=== PATIENT | female | born 1945 | race Caucasian/White ===

== ENCOUNTER 2024-03-18 12:50 | Emergency (ER) | payer MEDICARE, SELFPAY ==
--- OUTSIDE RECORDS SUMMARY | 2024-03-18 12:53 | XMS_ITS | Continuity of Care Document ---
Author Organization [facility] Address [address] [place] [address] Phone Care Team Providers Care Cutter Operator Asbestos Shingle Name Role Phone Geovanni Eden MD Unavailable Unavailable Advance Directives Directive Yes / No Effective Date File Name No Information Encounters Encounter Description Practice Location Reason(s) For Visit Diagnoses Date Provider Providers Copied on Encounter [facility], [address], [place], [place], [id number], tel:[phone] [facility] No Information 6 Meek Galarza. [address], [facility] [address], [place], [address], [place]. [phone] Referring Provider: Naima Tam MD, [address] [place] [address], [place], [address]. tel:[phone] [facility] [address], [place], [place], [id number], tel:[phone] [facility] 6 Meek Galarza. [address], [address], [place], [address], [place]. tel:[phone] Family History Family Member Type Diagnosis Age At Onset No Information Payers Payer name Insurance type Covered republican ID Authoriza tion(s) MEDICARE [place] [id number] BCBS INACTIVE OUT OF STATE [id number] Social History Type Description Quantity Date Captured Comments Sex Female Smoking Status No Information Chief Complaint And Reason For Visit No Information Reason For Referral Reason For Referral No Information History Of Present Illness Encounter Date Complaint History Of Prese nt Illness No Information Functional Status Date Functional Assessmen t No Information Instructions Date Instruction Additional Infor mation No Information Assessments Type Assessment Date No Information Patient Care Teams Name Effective Dates (start - stop) Status Members No Information
--- OUTSIDE RECORDS SUMMARY | 2024-03-18 12:53 | XMS_ITS | Clinical Summary ---
Author Organization [facility] Address [address] [place] [address] Phone Care Team Providers Care Lamp Shade Assembler Name Role Phone Naima Tam Primary Care Provider [phone] Allergies Active Allergy Reactions Criticality Noted Date Comments Atorvastatin Other (see Comments) 09/01/2017 Muscle stiffness Lovastatin Other (see Comments) 09/01/2017 Stiffness and sleeplessness Meloxicam Other (see Comments) 02/01/2020 Elevated blood pressure Niacin Hives 09/01/2017 Pravastatin Sodium Other (see Comments) 018 Myalgias Simvastatin Other (see Comments) 09/01/2017 Irritated shingles Medications ferrous sulfate 325 (65 Fe) MG Tablet Take 325 mg by mouth Every other day. Active ipratropium-alb uterol (DUO-NEB) 0.5-2.5 (3) MG/3ML Solution by Nebulization route 4 times daily. Active Multiple Vitamins-Minera ls (MULTIVITAMIN PO) Take 1 Tab by mouth daily. Active Probiotic Product (PROBIOTIC ADVANCED PO) Take 1 Cap by mouth daily. Active levothyroxine (SYNTHROID) 25 MCG Tablet Take 25 mcg by mouth daily. Active albuterol 108 (90 Base) MCG/ACT Aerosol Solution take 1-2 Puffs by inhalation every 4 hours as needed. Active Cholecalciferol (VITAMIN D3) 2000 units Tablet Take 2,000 Units by mouth daily. Active Ascorbic Acid (VITAMIN C) 1000 MG Tablet Take 2 Tabs by mouth daily. Active GARLIC PO Take 1 Tab by mouth daily. 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 Iron deficiency anemia 09/02/2017 Achalasia 09/02/2017 Family history of breast cancer in mother 2017 Family History Medical History Relation Name Comments Rheumatoid Arthritis Brother Lung Cancer Father Anemia Mother Breast Cancer Mother Glaucoma Mother Other-comment Mother Temporal Arter itis Relation Name Status Comments Brother Alive Father Mother Alive Social History Tobacco Use Types Packs/Day Years Used Date Smoking Tobacco: Never Smokeless Tobacco: Never Tobacco Cessation:Counseling Given: No Alcohol Use Standard Drinks/Week Comments Never 0 (1 standard drink = 0.6 oz pur e alcohol) PHQ-2 Answer Date Recorded Total Score - Questions 1-9 0 07/16 Comments No Sex and Gender Information Value Date Recorded Sex Assigned at Not on file Legal Sex Female 8:52 AM CDT Gender Identity Not on file Sexual Orientation Not on file Last Filed Vital Signs Vital Sign Reading Time Taken Comments Blood Pressure 122/70 01/29/2022 8:44 AM SUIT ATTENDANT Pulse 109 01/29/2022 8:44 AM SUIT ATTENDANT Temperature 36.3 ??C (97.4 ??F) 01/29/2022 8:44 AM CS T Respiratory Rate 16 01/29/2022 8:44 AM SUIT ATTENDANT Oxygen Saturation 99% 01/29/2022 8:44 AM SUIT ATTENDANT Inhaled Oxygen Concentration - - Weight 70.7 kg (155 lb 14.4 oz) 01/29/2022 8:44 AM SUIT ATTENDANT Height 154.9 cm (5' 1 ) 01/29/2022 8:44 AM SUIT ATTENDANT Body Mass Index 29.46 01/29/2022 8:44 AM SUIT ATTENDANT Plan of Treatment Health Maintenance Due Date Last Done Comments DEXA Bone Density 1945 Hepatitis C Virus (HCV) Screening 1945 Zoster Immunization (1 of 2) 07/09/1997 Respiratory Syncytial Virus (RSV) Immunization (Adult) (1 - 1-dose 75+ series) 07/09/2022 Influenza Immunization (#1) 10/17/202311/16, 12/09/2020, 11/10/2019, Additional history exists SARS-COV-2 Immunization ( season) 2023 09/11/2021, 01/01/2021, 04/13/2020, Additional history exists DTaP/Tdap/Td Immunization Discontinued 10/22/2016 TdaP Immunization Completed 10/22/2016 Pneumococcal Immunization (50+ years) Completed 05/20/2020, 02/03/2019, 02/23/2009 Pneumococcal Immunization Combined Discontinued 05/20/2020, 02/03/2019, 02/23/2009 Mammogram Discontinued 08/12/2021, 06/2019, 04/23/2016 Hepatitis B Immunization Aged Out No longer eligible based on patient's age to complete this topic Meningococcal Immunization (ACWY) Aged Out No longer eligible based on patient's age to complete this topic Rotavirus Immunization Aged Out No lo nger eligible based on patient's age to complete this topic Insurance [facility] MEDICARE Care Teams Lamp Shade Assembler Relationship Specialty Start Date End Date Naima Tam DO [address] [place] [address] Dr [place], [place] [id number] PCP - General Family Medicine 09/02/17
--- OUTSIDE RECORDS SUMMARY | 2024-03-18 13:02 | XMS_ITS | Continuity of Care Document ---
Author Organization [facility] Address [address] [place] [address] Phone Care Team Providers Care Pta Name Role Phone Geovanni Eden MD Unavailable Unavailable Advance Directives Directive Yes / No Effective Date File Name No Information Encounters Encounter Description Practice Location Reason(s) For Visit Diagnoses Date Provider Providers Copied on Encounter [facility], [address], [place], [place], [id number], tel:[phone] [facility] No Information 6 Meek Galarza. [address], [facility] [address], [place], [address], [place]. [phone] Referring Provider: Naima Tam MD, [address] [place] [address], [place], [address]. tel:[phone] [facility], [address], [place], [place], [address], tel:[phone] [facility] 6 Meek Galarza. [address], [address], [place], [address], [place]. tel:[phone] Family History Family Member Type Diagnosis Age At Onset No Information Payers Payer name Insurance type Covered libertarian ID Authoriza tion(s) [place] [id number] BCBS INACTIVE OUT OF STATE [id number] Social History Type Description Quantity Date Captured [...]
--- OUTSIDE RECORDS SUMMARY | 2024-03-18 13:02 | XMS_ITS | Clinical Summary ---
Author Organization [facility] Address Critical access hospital6 [facility] [place], [place] [id number] [place] [address] Care Team Providers Care Audiometrist Name Role Phone Jaquelin Tam DO Primary Care Provider [phone] Allergies Active Allergy Reactions Criticality Noted Date Comments Atorvastatin Myalgias Medium 05/26/2013 Muscle stiffness Rosuvastatin Other (see comment) Medium 05/05/2022 stiffness Pitavastatin Other (see comment) Medium 11/05/2022 Myalgias sim to other statins--topsof thighs-ok w ziptamag 2023 Lovastatin Myalgias Low 06/01/2016 Stiffness and sleeplessness Meloxicam Other (see comment) Medium 01/16/2020 BP went up, retrying 12/06/20 at half dose Niacin Hives High 08/13/2011 Pravastatin Myalgias Low 06/29/2017 Myalgias Simvastatin Myalgias Low 08/26/2015 Irritated shingles Medications COMPRESSION STOCKINGS Compression StockingsWear as directed. Medium Strength. Knee high. Cotton. Dx: Travel Z71.89, Right SI Pain M53.3, LBP 54.5, HTN [id number], TracyActive 12/22/19 17 Active Probiotic Product (PROBIOTIC-10 OR) Take 1 tablet by mouth daily. Active ferrous sulfate, 65 mg elemental, 325 (65 FE) MG tablet Take 1 tablet (325 mg total) by mouth daily. Active multi vitamin/minerals tablet Take 1 tablet by mouth daily. Active Calcium Carbonate-Vitamin D (CALCIUM 600 + D OR) Take 2 tablets by mouth daily. Calcium 600 mg, vitamin d 400 units Active Vitamin D3 125 mcg Tab Take 1 tablet (125 mcg total) by mouth daily. Active diclofenac sodium (VOLTAREN) 1 % gelIndications:Lef t foot pain Apply 4 g topically 4 (four) times daily. 150 g 08/24/19 24 Active Pitavastatin Magnesium (ZYPITAMAG) 2 MG TabIndications:Mix ed hyperlipidemia Take 0.5 mg by mouth nightly at bedtime. 90 tablet 09/20/19 24 Active magnesium oxide (MAG-OX) 400 (240 Mg) MG tablet Take 1 tablet (400 mg total) by mouth daily. Active omeprazole (PRILOSEC) 20 MG capsule Take 1 capsule (20 mg total) by mouth daily. 30 capsule 10/20/19 24 Active levothyroxine (SYNTHROID) 25 MCG tabletIndications: Thyroid activity decreased TAKE ONE (1) TABLET(25 MCG) BY MOUTH DAILY. 90 tablet 01/03/20 24 Active dextromethorphan-g uaiFENesin ER (MUCINEX DM) 30-600 MG TABLET SR 12 HR 12 hr tabletIndications: Acute cough,Fluid level behind tympanic membrane of both ears,Acute viral laryngitis Take 1 tablet by mouth every 12 (twelve) hours as needed. 28 tablet 02/11/20 24 Active methylPREDNISolone , JM, (MEDROL DOSEPAK) 4 MG tabletIndications: Acute cough,Hoarse voice quality,Fluid level behind tympanic membrane of both ears,Acute viral laryngitis Take 1 tablet (4 mg total) by mouth daily. 6 TABLETS ON DAY ONE, 5 TABLETS DAY TWO, 4 TABLETS DAY THREE, 3 TABLETS DAY FOUR, 2 TABLETS DAY FIVE, AND 1 TABLET DAY SIX 1 each 02/11/20 24 Active losartan (COZAAR) 50 MG tabletIndications: Mixed hyperlipidemia TAKE 2 TABLETS (100 MG TOTAL) BY MOUTH DAILY. 180 tablet 02/16/19 25 Active Active Problems Problem Noted Date Diagnosed Date Caregiver burden 12/06/2023 Pain in both lower extremities 09/22/2023 Achalasia of esophagus 08/25/2023 S/P cervical spinal fusion 12/07/2022 Myofascial neck pain 12/07/2022 Family history of hyperlipidemia 11/05/2022 Peripheral vascular disease 11/05/2022 History of fusion of cervical spine 07/27/2022 Cervical spine instability 05/27/2022 Other cervical disc degenera tion, unspecified cervical region 05/27/2022 Radiculopathy, cervical region 05/27/2022 Foraminal stenosis of cervical region 05/27/2022 Reactive airways dysfunction syndrome, mild intermittent, uncomplicated ([facility]) 02/28/2021 Dense breast tissue on mammogram 03/18/2020 Hyperkalemia 02/01/2020 Abnormality of right breast on screening mammogr am 11/28/2018 Hip pain, bilateral 11/28/2018 Sign and symptom in breast 10/12/2018 Abnormal ultrasound of breast 09/07/2018 Deep venous thrombosis of le ft femoral vein with thrombophlebitis ([facility]) 07/07/2018 Iliopsoas bursitis of left hip 02/21/2018 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 Family history of breast cancer in mother 2017 Abnormal magnetic resonance imaging study 2017 Overview (02/18/2018): Date Onset: 07/15/2017 Edema of both legs 07/15/2017 Overview (02/18/2018): Date Onset: 07/15/2017 Elevated sed rate 07/15/2017 Overview (02/18/2018): Date Onset: 07/15/2017 Mild anemia 07/15/2017 Overview (02/18/2018): Date Onset: 07/15/2017 Superficial thrombophlebitis of arm 07/15/2017 Overview (02/18/2018): Note: left antecubital space secondary to phlebotomy Date Onset: 07/15/2017 Bronchitis 05/24/2017 Overview (02/18/2018): Date Onset: 08/13/2011 Date Onset: 05/24/2017 Cough 05/24/2017 Overview (02/18/2018): Date Onset: 05/24/2017 Liver cyst 05/24/2017 Overview (02/18/2018): Date Onset: 05/24/2017 Date Onset: 05/24/2017 Hiatal hernia 12/21/2016 Overview (02/21/2018): Date Onset: 08/26/2015 Thyroid activity decreased 05/18/2016 Overview (02/21/2018): Date Onset: 05/18/2016 Iliotibial band syndrome 05/18/2016 Overview (02/18/2018): Date Onset: 05/18/2016 Pain in thoracic spine 05/18/2016 Overview (02/18/2018): Date Onset: 05/18/2016 Abnormal blood level of iron 08/26/2015 Overview (02/18/2018): Date Onset: 06/20/2013 Date Onset: 08/26/2015 Atherosclerotic heart disease 03/25/2015 Overview (02/18/2018): Date Onset: 03/25/2015 Disorder of connective tissue ([facility]) 03/25/2015 Overview (02/18/2018): Date Onset: 03/25/2015 Hematuria 03/25/2015 Overview (02/18/2018): Date Onset: 03/25/2015 Insomnia 03/25/2015 Overview (02/18/2018): Date Onset: 03/25/2015 Skin lesion 03/25/2015 Overview (02/18/2018): Date Onset: 03/25/2015 Disease of esophagus 03/11/2015 Overview (02/18/2018): Date Onset: 08/13/2011 Date Onset: 03/11/2015 History of abnormal mammogram 11/19/2014 Overview (02/18/2018): Date Onset: 11/19/2014 Overweight 07/24/2014 Overview (02/18/2018): Date Onset: 07/24/2014 Tinnitus 07/24/2014 Overview (02/18/2018): Date Onset: 07/24/2014 Obstructive sleep apnea (adult) (pediatric) 06/2014 Dysphagia 11/07/2013 Overview (02/18/2018): Date Onset: 11/07/2013 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 Overview (02/18/2018): Date Onset: 11/07/2013 Seborrheic keratoses 11/07/2013 Overview (02/18/2018): Date Onset: 11/07/2013 Anxiety disorder 05/23/2013 Overview (02/18/2018): Date Onset: 05/23/2013 Conversion disorder 05/23/2013 Overview (02/18/2018): Date Onset: 05/23/2013 Irritable bowel syndrome 05/23/2013 Overview (02/18/2018): Date Onset: 05/23/2013 Asymptomatic varicose veins 07/25/2012 Overview (02/18/2018): Date Onset: 07/25/2012 Essential (primary) hypertension 05/09/2012 Overview (02/18/2018): Date Onset: 05/09/2012 Family history of other cardiovascular diseases 05/09/2012 Overview (02/18/2018): Date Onset: 05/09/2012 Bone spur 02/18/2012 Overview (02/18/2018): Note: left foot bone spurs Urinary tract infection 11/14/2011 Chronic fatigue syndrome 08/13/2011 Gastro-esophageal reflux disease without esophag itis 08/13/2011 Hyperlipidemia 08/13/2011 Overview (02/21/2018): Date Onset: 07/15/2017 Impaired fasting glucose 08/13/2011 Overview (02/18/2018): Date Onset: 05/24/2017 Date Onset: 08/13/2011 Iron deficiency anemia 08/13/2011 Lipoma 08/13/2011 Overview (02/18/2018): Date Onset: 08/13/2011 Menopausal syndrome 08/13/2011 Overview (02/18/2018): Date Onset: 08/13/2011 Raynaud's syndrome 08/13/2011 Idiopathic scoliosis and kyphoscoliosis 08/13/19 12 Vitamin D deficiency 08/13/2011 Overview (02/18/2018): Date Onset: 08/13/2011 Nocturia 01/06/2011 Resolved Problems Problem Noted Date Diagnosed Date Resolved Date Cervical myelopathy ([facility]) 05/27/2022 09/03/2023 Spinal stenosis of cervical region 05/27/2022 03/04/2023 Spondylolisthesis of cervical region 05/27/2022 03/04/2023 Type 2 diabetes mellitus ([facility]) 06/20/2013 01/19/2019 Overview (02/21/2018): Date Onset: 06/20/2013 Routine general medical exam ination at a health care facility 11/14/2011 10/27/2019 Encounters Date Type Department Care Team Description 02/11/2024 1:40 PM CARBONATION EQUIPMENT TENDER Office Visit [address] [place] [address] Dat Valencia MD Cough (Pt is here for a cough,her voice is raspy, symptoms started Wed, she has been taking cold and sinus medication) 02/11/2024 Travel 01/17/2024 2:48 PM CARBONATION EQUIPMENT TENDER - 01/17/2024 11:59 PM CARBONATION EQUIPMENT TENDER Hospital Encounter [facility] [address] [place] [address] Jaquelin Tam, DO Discharge Disposition: Home or Self Care (Routine Discharge) 01/17/2024 Travel from Last 3 Months Immunizations Name Administration Dates Next Due Fluzone High Dose - >Age 65 (Prefilled Syringe) 12/11/2021,12/09/2020,11/10/2019,2019,11/28/2018,11/28/2018 Influenza (Generic) 11/15/2017, 7,12/10/2015,2014,11/29/2013,02/15/2010 MODERNA COVID-19 (12+) MRNA, LNP-S, PF, 100 MCG/ 0.5 ML DOSE 03/16/2020,03/16/2020 MODERNA COVID-19 (FLAKE CUTTER OPERATOR PATI JOSÉ MIGUEL), MRNA, LNP-S, PF, 50 MCG/ 0.25 ML DOSE 09/11/2021 Pneumococcal (Pneumovax 23) 05/20/2020,0 05/20/2020,02/23/2009,2009 Pneumococcal (Prevnar 13) 02/03/2019 Tdap (Generic) 10/22/2016 Family History Medical History Relation Comments Arthritis Brother SEPSIS Brother Cancer Father brain cancer Tuberculosis Father Breast Cancer Maternal Aunt 1 Breast Cancer Maternal Aunt 2 Breast Cancer Maternal Aunt 3 Arthritis Mother Breast Cancer Mother Cancer Mother breast cancer Heart Mother Heart Disease Mother heart valve prob lems Hypertension Mother Kidney Disease Mother not on dialysis Lipids Mother Relation Status Comments Brother (Age 54) of sepsis , hx rheumatoid arthritis Daughter 1 Alive Daughter 2 Alive Daughter 3 Alive Father (Age 71) Maternal Aunt 1 Severe scoliosis and degenerative arthritis Maternal Aunt 2 Alive Maternal Aunt 3 Alive Maternal Grandfather Maternal Grandmother Mother (Age 94) Giant cell art eritis temporal arteritis steroid-dependent- dec 07/05/22 Paternal Grandfather Paternal Grandmother Son Alive Social History Tobacco Use Types Packs/Day Years Used Date Smoking Tobacco: Never Passive Smoke Exposure: Never Smokeless Tobacco: Never Alcohol Use Standard Drinks/Week Comments No 0 (1 standard drink = 0.6 oz pur e alcohol) Humiliation, Afraid, Rape, and Kick questionnair e Answer Date Recorded Within the last year, have y ou been afraid of your partner or ex-partner? No 07/27/2022 Within the last year, have y ou been humiliated or emotionally abused in other ways by your partner or ex-partner? No Within the last year, have y ou been kicked, hit, slapped, or otherwise physically hurt by your partner or ex-partner? No 07/27/2022 Within the last year, have y ou been raped or forced to have any kind of sexual activity by your partner or ex-partner? No 07/27/2022 AUDIT-C Answer Date Recorded Frequency of Alcohol Consumption Never 02/21/2018 Average Number of Drinks Not on file 019 Frequency of Binge Drinking Not on file 08/2018 Overall Financial Resource Strain (CARDIA) Answe r Date Recorded How hard is it for you to pa y for the very basics like food, housing, medical care, and heating? Not hard at all 07/27/2022 PHQ-2 Answer Date Recorded Patient Health Questionnaire-2 Score 0 12/09/2023 [facility] - Occupational Stress Questionnaire Answer Date Recorded Do you feel stress - tense, restless, nervous, or anxious, or unable to sleep at night because your mind is troubled all the time - these days? Not at all 07/27/2022 Exercise Vital Sign Answer Date Recorde d On average, how many days pe r week do you engage in moderate to strenuous exercise (like a brisk walk)? 0 days 07/27/2022 On average, how many minutes do you engage in exercise at this level? 0 min 07/27/2022 Hunger Vital Sign Answer Date Recorded Within the past 12 months, y ou worried that your food would run out before you got the money to buy more. Never true 07/28/19 23 Within the past 12 months, t he food you bought just didn't last and you didn't have money to get more. Never true 07/27/2022 PRAPARE - Transportation Answer Date Re corded In the past 12 months, has l ack of transportation kept you from medical appointments or from getting medications? No 07/16 In the past 12 months, has l ack of transportation kept you from meetings, work, or from getting things needed for daily living? No 07/27/2022 Housing Stability Vital Sign Answer Zackary e Recorded In the last 12 months, was t here a time when you were not able to pay the mortgage or rent on time? No 07/27/2022 In the last 12 months, how many places have you lived? 1 07/27/2022 In the last 12 months, was t here a time when you did not have a steady place to sleep or slept in a mcc (including now)? 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 Not on file Not on file Last Filed Vital Signs Vital Sign Reading Time Taken Comments Blood Pressure 107/62 02/11/2024 1:38 PM CARBONATION EQUIPMENT TENDER Pulse 72 02/11/2024 1:38 PM CARBONATION EQUIPMENT TENDER Temperature 37.1 ??C (98.7 ??F) 02/11/2024 1:38 PM CS T Respiratory Rate 16 02/11/2024 1:38 PM CARBONATION EQUIPMENT TENDER Oxygen Saturation 99% 02/11/2024 1:38 PM CARBONATION EQUIPMENT TENDER Inhaled Oxygen Concentration - - Weight 66.2 kg (146 lb) 02/11/2024 1:38 PM CARBONATION EQUIPMENT TENDER Height 154.9 cm (5' 1 ) 02/11/2024 1:38 PM CARBONATION EQUIPMENT TENDER Body Mass Index 27.59 02/11/2024 1:38 PM CARBONATION EQUIPMENT TENDER Plan of Treatment Upcoming Encounters Date Type Department Care Team (Late st Contact Info) Description 04/17/2024 7:40 AM CARBONATION EQUIPMENT TENDER Office Visit [facility] [place] [address] [place], [place] [id number] [address] Der[address] Coronado PA [address] [place] [address] 02/28/2025 10:00 AM CARBONATION EQUIPMENT TENDER Office Visit [facility] [address] [place] [phone] Cortes Sena MD [facility]. [address] [id number] Health Maintenance Due Date Last Done Comments Zoster Vaccines (1 of 2) 07/09/1997 RSV Immunization or 60+ Years (1 - 1-dose 75+ series) 07/09/2022 COVID-19 Vaccine ( season) 2023 09/11/2021, 01/01/2021, 04/13/2020, Additional history exists Influenza Adult (#1) 2023 12/11/2021, 12/09/2020, 11/10/2019, Additional history exists PHQ-2 (Phys[facility] [place]) 02/16/2024 12/09/2023 PHQ-2 (Physician [place]) 12/08/2024 12/09/2023 DTaP, Tdap and Td Vaccines (2 - Td or Tdap) 10/22/2026 10/22/2016 Annual Medicare Wellness Visit 09/20/2029 Postponed from 07/09/2012 (Elected Alternative Screening/Test) Hepatitis C Completed 10/03/2018 Pneumococcal Vaccine: 65+ Years Completed 05/20/2020, 05/20/2020, 02/03/2019, Additional history exists Colorectal Cancer Screening Colonoscopy (10 Years) Discontinued 04/25/2021, 04/25/2021 Dexa Scan (General) Completed 12/21/2022, 06/25/2016, 06/25/2016 Meningococcal B Vaccine Aged Out No l onger eligible based on patient's age to complete this topic Meningococcal Vaccine Aged Out No melissa carmen eligible based on patient's age to complete this topic RSV Immunizations Under 20 Months Aged Out No longer eligible based on patient's age to complete this topic Goals Goal Patient Goal Type Associated Problems Recent Progress Patient-Stated? Author Family - family caregiver with be involved in care transitions and discharge planning Lifestyle No Rafa Mathew, RN Medical Devices Implanted Type Area Accounting Director Device Identifier Shelf Expiration Date Model / Serial / Lot Bio 4 Viable Bone Matrix Spine Implanted:Qty : 1 on 07/27/2022 by [facility] N/A: Spine Cervical [employer] 09/15/2024 [id number] / [id number] / [place] Interbody System Implanted:Qty : 1 on 07/27/2022 by Win Watson MD at [facility] N/A: Spine Cervical [id number] 03/11/2026 [id number] / / [id number] [place] Inter Body System Implanted:Qty : 1 on 07/27/2022 by Win Watson MD at [facility] N/A: Spine Cervical [id number] 04/19/2027 [id number] / / [id number] Description:K2M Vst Implanted:Qty : 6 on 07/27/2022 by Win Watson MD at [facility] N/A: Spine Cervical [employer] - DIV XIAO SHERI [id number] / / Plate Implanted:Qty : 1 on 07/27/2022 by Win Watson MD at [facility] N/A: Spine Cervical [employer] SHERI [id number] / / Explanted Type Area Accounting Director Device Identifier Shelf Expiration Date Model / Serial / Lot Distration Pin 12mm - [id number] Explanted:Qty: 2 on 07/27/2022 at [facility] Pin [employer] [id number] / / Procedures Procedure Name Priority Date/Time Associated Diagnosis Comments CORONAVIRUS (COVID-19) INFLUENZA A & B ANTIGEN IA PANEL Routine 02/11/2024 Acute cough MG SCREENING W DEVON DESTINEY DIGI Routine 01/17/2024 3:24 PM CARBONATION EQUIPMENT TENDER Screening mammogram, encounter for BONE DENSITY/DEXA Routine 12/21/2022 9:3 4 AM CARBONATION EQUIPMENT TENDER Osteoarthritis of spine with radiculopathy, cervical region Disorder of connective tissue (CMS/HCC HHS/HCC) Spondylolisthesis of cervical region Bone spur Cervical spine instability Spinal stenosis of cervical region Asymptomatic menopausal state COLONOSCOPY Routine 04/25/2021 6:47 AM CARBONATION EQUIPMENT TENDER HEPATITIS C RNA W/ REFLX GENOTYPE Routine 10/03/2018 9:29 AM CDT from Last 3 Months or Most Recently Relevant to Health Maintenance Results * CORONAVIRUS (COVID-19) INFLUENZA A & B ANTIGEN IA PANEL (02/11/2024) Pathologist [facility] CORONAVIRUS ANTIGEN IA NEGATIVE NEGATIVE [facility] (201), [facility] INFLUENZA A NEGATIVE NEGATIVE [facility] (201), [facility] INFLUENZA B NEGATIVE NEGATIVE [facility] ([facility]), [facility] Internal Control: VALID VALID [facility] (201), [facility] NASAL STRUCTURE / Unknown 02/11/2024 us Dat Valencia MD MICROBIOLOGY - GENERAL ORDER ROMIE Final Result [facility] (201), [place] [address], * MG SCREENING W DEVON DESTINEY DIGI (01/17/2024 3:24 PM CARBONATION EQUIPMENT TENDER) Anatomical Region Laterality Modality Breast Bilateral Mammography 02/18/2024 8:25 AM CARBONATION EQUIPMENT TENDER Impressions 02/18/2024 8:26 AM CARBONATION EQUIPMENT TENDER =====IMPRESSION:===== No mammographic findings suggestive of malignancy ASSESSMENT: ACR BI-RADS 2 - BENIGN FINDING(S) Recommendation: 1: Routine Screening Bilateral COMMENTS: A negative or benign mammogram should not delay further workup and/or biopsy of a clinically suspicious finding or palpable abnormality. Regions of dense breast tissue may obscure an underlying mass. Ordered By: JAQUELIN TAM Interpreted By: Dat Espinoza MD, 02/18/2024 8:25 AM Narrative 02/18/2024 8:26 AM CARBONATION EQUIPMENT TENDER [facility] [address] [place] [address] EXAMINATION: Digital bilateral screening mammogram with 3-D tomosynthesis EXAM DATE/TIME: 01/17/2024 2:51 PM REASON FOR EXAM: Routine screening. No current breast complaints. History of breast cancer in mother at age 53. History of prior benign right breast biopsy in 2004. COMPARISON: Screening mammogram 07/20/2018, 06/24/2017, 04/17/2016. TECHNIQUE: Digital screening mammography of both breasts was performed in addition to 3-D Tomosynthesis technique. This study was read with the assistance of a computer-aided detection system. TISSUE DENSITY: There are scattered areas of fibroglandular density. FINDINGS: Scattered benign-appearing calcifications noted. Parenchymal pattern is fairly similar to prior study given differences in patient positioning and technique. Marked skin lesions bilaterally. No suspicious masses, malignant appearing calcifications, skin thickening or other abnormalities are present. ??No significant change from the prior exam. us Jaquelin Tam DO MAMMO Final Result * BONE DENSITY/DEXA (12/21/2022 9:34 AM CARBONATION EQUIPMENT TENDER) Anatomical Region Laterality Modality Bone Other, Computed Tomography 12/30/2022 2:14 PM CARBONATION EQUIPMENT TENDER Impressions 12/30/2022 2:15 PM CARBONATION EQUIPMENT TENDER IMPRESSION: WHO Classification: osteopenia. ??0.5% interval increase in bone mineral density of the left femoral neck from 2017 comparison. Ordered By: JAQUELIN TAM Interpreted By: Sandro Reyes MD, 12/30/2022 2:14 PM Narrative 12/30/2022 2:15 PM CARBONATION EQUIPMENT TENDER Examination: Bone Density Axial Exam Date/Time: 12/21/2022 9:20 AM Reason For Exam: ??Asymptomatic menopausal state. ?? Comparison: 10/15/2011 DEXA scan Findings: ??DEXA bone densitometry ?The bone mineral density (BMD) was determined by dual-energy x-ray absorptiometry, the results are as follows: ?AP Lumbar Spine L1 through L4 ?BMD Patient (/[facility]): 1.331 ?T-Score (Standard deviations from young adult peak bone density): 1.3 ?Left femoral neck: ?BMD Patient (/[facility]): 0.850 ?T-Score (Standard deviations from young adult peak bone density): -1.1 ? Total left femur: ?BMD Patient (/[facility]): 0.962 ? T-Score (Standard deviations from young adult peak bone density): -0.3 Procedure Note Sandro Reyes MD - 12/30/2022 Examination: Bone Density Axial Exam Date/Time: 12/21/2022 9:20 AM Reason For Exam: Asymptomatic menopausal state. Comparison: 10/15/2011 DEXA scan Findings: DEXA bone densitometry The bone mineral density (BMD) was determined bydual-energy x-ray absorptiometry, the results are as follows: AP Lumbar Spine L1 through L4 BMD Patient (GM/SQCM): 1.331 T-Score (Standard deviations from young adult peak bonedensity): 1.3 Left femoral neck: BMD Patient (GM/SQCM): 0.850 T-Score (Standard deviations from young adult peak bonedensity): -1.1 Total left femur: BMD Patient (GM/SQCM): 0.962 T-Score (Standard deviations from young adult peak bonedensity): -0.3 IMPRESSION: WHO Classification: osteopenia. 0.5% interval increase in bone mineraldensity of the left femoral neck from 2017 comparison. Ordered By: JAQUELIN TAM Interpreted By: Sandro Reyes MD, 12/30/2022 2:14 PM Jaquelin Tam DO DEXA Final Result * HEPATITIS C RNA W/ REFLX GENOTYPE (10/03/2018 9:29 AM CDT) HEPATITIS C AB NON-REACTIVE NON-REACT [facility] SIGNAL TO CUTOFF 0.01 <1.00 [facility] Comment: HCV antibody was non-reactive. There is no laboratory evidence of HCV infection. In most cases, no further action is required. However, if recent HCV exposure is suspected, a test for HCV RNA (test code 82133) is suggested. For additional information please refer to http://education.[employer]/faq/UYE01x9 (This link is being provided for informational/ educational purposes only.) JREICHO HOOPER DO,MPH THIS TEST WAS PERFORMED AT [facility] [address] [place] [address] COMMENT Not required [facility] 10/03/2018 9:29 AM CDT 10/03/2018 9:29 AM CDT Jaquelin Tam DO LABORATORY Final Result [facility] [address] [place] [address] from Last 3 Months or Most Recently Relevant to Health Maintenance Insurance MEDICARE [facility] MEDICARE Advance Directives Documents on File Type Date Recorded Patient Terminal Operations Manager Expl anation Advance Directives and Living Will 05/03/2014 12:00 AM ADVANCED DIRECTIVES Advance Directives and Living Will 04/26/2014 12:00 AM ADVANCED DIRECTIVES Advance Directives and Living Will 01/19/2014 12:00 AM ADVANCED DIRECTIVES Advance Directives and Living Will 12/19/2013 12:00 AM ADVANCED DIRECTIVES * Full Code (Latest Code Status on File) Date Activated Date Inactivated Comments 07/27/2022 4:00 PM 07/28/2022 6:33 PM Care Teams Audiometrist Relationship Specialty Start Date End Date Jaquelin Tam DO [address] [place] [address] [place] [address] PCP - General FAMILY PRACTICE 12/31/17
--- OUTSIDE RECORDS SUMMARY | 2024-03-18 13:02 | XMS_ITS | Encounter Summary ---
Author Organization [facility] Address [address] [place] [address]. [place], [place] [address] [place] [address] Care Team Providers Care Showroom Consultant Name Role Phone Yonatan Naima Song DO Primary Care Provider [phone] Encounter Details Date Type Department Care Team (Late st Contact Info) Description 06/08/2023 [place]enteo[place]round Message Enc [facility] [address] [place] [address] Mychart, [facility] Provider Labs Social History Tobacco Use Types Packs/Day Years Used Date Smoking Tobacco: Never Smokeless Tobacco: Never Alcohol Use Standard [...] Date Recorded Patient Health Questionnaire-2 Score 0 02/03/2022 [facility] - Occup[facility] Stress [...] place to sleep or slept in a prison (including now)? No 07/27/2022 Comments No Sex and Gender Information Value Date Recorded Sex Assigned at Not on file Legal Sex Female 8:44 PM CDT Gender Identity Female 04/18/2021 9:18 AM RAILROAD SIGNAL OPERATOR Sexual Orientation Straight 04/18/2021 9: 18 AM RAILROAD SIGNAL OPERATOR Occupation Industry Job Start Date Job End Date [employer] Not on file Not on file Not on file documented as of this encounter Functional Status * Are you deaf or do you have serious difficulty hearing Answer Date of Assessment Author Status No 07/27/2022 3:00 PM Beronica Bermudez RN Active * Are you blind or do you have serious difficulty seeing, even when wearing glasses? Answer Date of Assessment Author Status No 07/27/2022 3:00 PM Beronica Bermudez RN Active * Do you have serious difficulty walking or climbing stairs? Answer Date of Assessment Author Status No 07/27/2022 3:00 PM Beronica Bermudez RN Active * Do you have difficulty dressing or bathing? Answer Date of Assessment Author Status No 07/27/2022 3:00 PM Beronica Bermudez RN Active * Because of a physical, mental, or emotional condition, do you have difficulty doing errands alone such as visiting a doctor's office or shopping? Answer Date of Assessment Author Status No 07/27/2022 3:00 PM Beronica Bermudez RN Active documented as of this encounter Mental Status * Because of a physical, mental, or emotional condition, do you have serious difficulty concentrating, remembering, or making decisions? Answer Entry Date Author Status No 07/27/2022 3:00 PM Beronica Bermudez RN Active documented in this encounter Plan of Treatment Upcoming Encounters Date Type Department Care Team (Late st Contact Info) Description 04/17/2024 7:40 AM RAILROAD SIGNAL OPERATOR Office Visit [facility] [place] [address] [place] [address] Derrick Coronado PA [address] [place] [address] 02/28/2025 10:00 AM RAILROAD SIGNAL OPERATOR [facility] [address] [place] [address] Cortes Sena MD [facility] [address] [place], [place] [id number] documented as of this encounter Goals Goal Patient Goal Type Associated Problems Recent Progress Patient-Stated? Author Family - family caregiver with be involved in care transitions and discharge planning Lifestyle No Rafa Mathew, RN documented as of this encounter Visit Diagnoses Not on filedocumented in this encounter Additional Health Concerns Infection Onset Date Last Indicated Resolved Time COVID-19 Rule Out 02/11/2024 02/11/2024 02/11/2024 2:49 PM RAILROAD SIGNAL OPERATOR Assessment Noted Time PHQ-9 Depression Total Score: 0 12/07/19 9:03 AM CDT documented as of this encounter Care Teams Showroom Consultant Relationship Specialty Start Date End Date Naima Tam DO [address] [place] [address] [place] [address] PCP - General FAMILY PRACTICE 12/31/17 documented as of this encounter
--- OUTSIDE RECORDS SUMMARY | 2024-03-18 13:02 | XMS_ITS | Encounter Summary ---
Author Organization [facility] Address [address] [place] [address]. [place], [place] [address] [place] [address] Care Team Providers Care Lens Dotter Name Role Phone Naima Tam DO Primary Care Provider [phone] Encounter Details Date Type Department Care Team (Late st Contact Info) Description 07/30/2014 Abstract [facility] CONVERSION [address] [place] [address] , Generic ConversionMD Social History Tobacco Use Types Packs/Day Years Used Date Smoking Tobacco: Never Assessed Comments Unknown Sex and Gender Information Value Date Recorded Sex Assigned at Not on file Legal Sex Female 8:44 PM CDT Gender Identity Female 04/18/2021 9:18 AM OFF TRACK BETTING MANAGER Sexual Orientation Straight 04/18/2021 9: 18 AM OFF TRACK BETTING MANAGER documented as of this encounter Plan of Treatment Upcoming Encounters Date Type Department Care Team (Late st Contact Info) Description 04/17/2024 7:40 AM OFF TRACK BETTING MANAGER Office Visit [facility] [place] [address] [place], [place] [id number] Derrick Coronado PA [address] [place] [address] 02/28/2025 10:00 AM OFF TRACK BETTING MANAGER [facility] [address] [place] [phone] Cortes Sena MD [address] [address] documented as of this encounter Visit Diagnoses Not on filedocumented in this encounter Additional Health Concerns Infection Onset Date Last Indicated Resolved Time COVID-19 Rule Out 05/29/2020 05/29/2020 05/29/2020 6:44 PM CDT COVID-19 Rule Out 10/24/2020 10/24/2020 10/24/2020 11:31 AM CDT COVID-19 Rule Out 10/24/2020 10/24/2020 10/26/2020 2:30 AM CDT COVID-19 Rule Out 02/11/2024 02/11/2024 02/11/2024 2:49 PM OFF TRACK BETTING MANAGER documented as of this encounter Care Teams Lens Dotter Relationship Specialty Start Date End Date Naima Tam DO [facility] Healthcare [place] [address] PCP - General FAMILY PRACTICE 12/31/17 documented as of this encounter
--- OUTSIDE RECORDS SUMMARY | 2024-03-18 13:02 | XMS_ITS | Clinical Summary ---
Author Organization [facility] Address [address] [place] [address] Care Team Providers Care Computer Graphics Illustrator Name Role Phone Naima Tam DO Primary Care Provider [phone] Allergies Active Allergy Reactions Criticality Noted Date Comments Atorvastatin Other (See Comments),Muscle Pain Medium 05/26/2013 Muscle stiffness Muscle stiffness Lovastatin Other (See Comments),Muscle Pain Low 06/01/2016 Stiffness and sleeplessness Stiffness and sleeplessness Niacin Hives High 08/13/2011 Pravastatin Muscle Pain Low 06/29/2017 Myalgias Pravastatin Sodium Other (See Comments) 018 Myalgias Simvastatin Other (See Comments),Muscle Pain Low 08/26/2015 Irritated shingles Irritated shingles Medications Lactobac no.41/Bifidobact no.7 (PROBIOTIC-10 ORAL) Take 1 Capsule by mouth. Active levothyroxine 25 mcg tablet Take 25 mcg by mouth. Active ferrous sulfate 325 mg (65 mg iron) tablet Take 325 mg by mouth. Active ascorbic acid, vitamin C, (VITAMIN C) 1,000 mg Tablet Take 2 Tablets by mouth. Active cholecalciferol (VITAMIN D3) 400 unit Tablet Take 400 Units by mouth daily. Active albuterol sulfate 90 mcg/Actuation inhaler Take 1-2 Puffs by inhalation. Active ipratropium-albut chaparro (DUONEB) 0.5 mg-3 mg(2.5 mg base)/3 mL Solution for Nebulization Take by inhalation. Active multivitamins with minerals (Multiple Vitamin-Minerals) Tablet Take 1 Tablet by mouth daily. Active losartan (COZAAR) 50 mg tablet Take 100 mg by mouth daily. 05/04/202 3 Active Active Problems Problem Noted Date Diagnosed Date Dense breast tissue on mammogram 03/18/2020 Sign and symptom in breast 10/12/2018 Abnormal mammogram of right breast 09/07/2018 Abnormal ultrasound of breast 09/07/2018 Family History Medical History Relation Name Comments Cancer Father Lung Cancer Father Breast Cancer Maternal Aunt 1 in 50's Cancer Maternal Aunt 1 Breast Cancer Maternal Aunt 2 in 50's Cancer Maternal Aunt 2 Breast Cancer Maternal Aunt 3 in 50's Cancer Maternal Aunt 3 Breast Cancer Mother Cancer Mother Ovarian Cancer Neg Hx Relation Name Status Comments Father Maternal Aunt 1 Maternal Aunt 2 Maternal Aunt 3 Mother Social History Tobacco Use Types Packs/Day Years Used Date Smoking Tobacco: Never Smokeless Tobacco: Never Alcohol Use Standard Drinks/Week Comments Not Currently 0 (1 standard drink = 0.6 oz pur e alcohol) Comments No Sex and Gender Information Value Date Recorded Sex Assigned at Not on file Legal Sex Female 3:30 PM CDT Gender Identity Not on file Sexual Orientation Not on file Last Filed Vital Signs Vital Sign Reading Time Taken Comments Blood Pressure 150/78 09/03/2022 8:37 AM CDT Pulse 66 08/12/2021 7:52 AM CDT Temperature 36.9 ??C (98.4 ??F) 10/12/2018 3:03 PM CD T Respiratory Rate - - Oxygen Saturation 96% 10/12/2018 3:03 PM CDT Inhaled Oxygen Concentration - - Weight 69.6 kg (153 lb 6.4 oz) 09/03/2022 8:37 A M CDT Height 154.9 cm (5' 1 ) 09/03/2022 8:37 AM CDT Body Mass Index 28.98 09/03/2022 8:37 AM CDT Plan of Treatment Health Maintenance Due Date Last Done Comments DIABETES ANNUAL FOOT EXAM 07/09/1965 DIABETES ANNUAL RETINAL EXAM 07/09/1965 DIABETES MICROALBUMIN ANNUAL SCREEN 07/09/1965 LDL CHOLESTEROL ANNUAL 07/09/1965 ZOSTER VACCINE (1 of 2) 07/09/1997 RSV VACCINE (60+ or ) (1 - 1-dose 75+ series) 07/09/2022 DIABETES HBA1C Q 6 MONTHS 12/09/20222022, 06/10/2021, 01/18/2020 INFLUENZA VACCINE (#1) 2023 2, 12/09/2020, 11/10/2019, Additional history exists COVID-19 Vaccine (2023-2 5 season) 2023 09/11/2021, 03/16/2020 DTAP/TDAP/TD VACCINES (2 - T d or Tdap) 10/22/2026 10/22/2016 OSTEOPOROSIS SCREENING Completed 06/25/2016 PNEUMOCOCCAL VACCINE 65+ YEARS Completed 0 05/20/2020, 02/03/2019, 02/23/2009 Insurance MEDICARE PART A AND B [facility] Care Teams Computer Graphics Illustrator Relationship Specialty Start Date End Date Naima Tam DO [address] [place] [address] [place] [address] PCP - General Family Practice 09/07/18
--- OUTSIDE RECORDS SUMMARY | 2024-03-18 13:02 | XMS_ITS | Encounter Summary ---
Author Organization [facility] Address [address] [place] [address]. [place], [place] [address] [place] [address] Care Team Providers Care Test Evaluator Name Role Phone Naima Tam DO Primary Care Provider [phone] Encounter Details Date Type Department Care Team (Late st Contact Info) Description 08/10/2014 Abstract [facility] CONVERSION [address] [place] [address] , Generic ConversionMD Social History Tobacco Use Types Packs/Day Years Used Date Smoking Tobacco: Never Assessed Comments Unknown Sex and Gender Information Value Date Recorded Sex Assigned at Not on file Legal Sex Female 8:44 PM CDT Gender Identity Female 04/18/2021 9:[address] ENGINEERING TECHNICIAN Sexual Orientation Straight 04/18/2021 9: [address] ENGINEERING TECHNICIAN documented as of this encounter Plan of Treatment Upcoming Encounters Date Type Department Care Team (Late st Contact Info) Description 04/17/2024 7:[address] ENGINEERING TECHNICIAN Office Visit [facility] [place] [address] [place], [place] [phone] Derrick Coronado PA [address] [place] [address] 02/28/2025 10:[address] ENGINEERING TECHNICIAN [facility] [address] [place] [address] Cortes Sena MD [address] [address] documented as of this encounter Visit Diagnoses Not on filedocumented in this encounter Additional Health Concerns Infection Onset Date Last Indicated Resolved Time COVID-19 Rule Out 05/29/2020 05/29/2020 05/29/2020 6:44 PM CDT COVID-19 Rule Out 10/24/2020 10/24/2020 10/24/2020 11:31 AM CDT COVID-19 Rule Out 10/24/2020 10/24/2020 10/26/2020 2:30 AM CDT COVID-19 Rule Out 02/11/2024 02/11/2024 02/11/2024 2:[address] ENGINEERING TECHNICIAN documented as of this encounter Care Teams Test Evaluator Relationship Specialty Start Date End Date Naima Tam DO [facility] Healthcare [place] [address] PCP - General FAMILY PRACTICE 12/31/17 documented as of this encounter
--- NOTE | 2024-03-18 13:05 | ED.GENADULT ---
HPI - General Adult General Chief complaint: Animal Bite Stated complaint: Cat Bite RT Arm Time Seen by Provider: 03/18/24 13:05 Source: patient Mode of arrival: ambulatory Limitations: no limitations History of Present Illness HPI narrative: 78-year-old female patient presents to the [facility] with complaints of a right arm cat bite. Patient states she was brushing her cat this morning and was trying to get out and not in her hair and when she did the CT reacted by biting her to the right arm. Patient states she did clean it with soap water but as the day progressed she has noticed that she has pain when moving her arm as well as the redness and swelling has gotten worse. Patient unsure of when her last tetanus shot was. Related Data Home Medications ?Medication ?Instructions ?Recorded ?Confirmed ?Last Taken ?Type apixaban 5 mg tablet (Eliquis) 5 mg PO BID 12/27/18 12/27/18 Unknown History ascorbic acid (vitamin C) 250 mg 250 mg PO DAILY 12/27/18 12/27/18 Unknown History tablet (Vitamin C) biotin 10,000 mcg disintegrating 10,000 mcg PO DAILY 12/27/18 12/27/18 Unknown History tablet cholecalciferol (vitamin D3) 25 25 mcg PO DAILY 12/27/18 12/27/18 Unknown History mcg (1,000 unit) tablet coQ10 (ubiquinol) 100 mg capsule 100 mg PO DAILY 12/27/18 12/27/18 Unknown History ferrous sulfate 325 mg (65 mg 325 mg PO DAILY 12/27/18 12/27/18 Unknown History iron) tablet (Iron (ferrous sulfate)) garlic 1,000 mg capsule 1,000 mg PO DAILY 12/27/18 12/27/18 Unknown History lactobacillus combination no.8 3 3,000 mmu cells PO DAILY 12/27/18 12/27/18 Unknown History billion cell capsule (Adult Probiotic) levothyroxine 25 mcg tablet 25 mcg PO DAILY 12/27/18 12/27/18 Unknown History (Synthroid) lisinopril 10 mg tablet 10 mg PO DAILY 12/27/18 12/27/18 Unknown History magnesium 200 mg tablet 165 mg 12/27/18 Unknown History Allergies Allergy/AdvReac Type Severity Reaction Status Date / Time niacin AdvReac Intermediate Abdominal Verified 03/18/24 13:15 Pain Xahtthk-ORQ-LtM Reductase AdvReac Muscle Pain Verified 03/18/24 13:15 Inhibitor (Yqaqqws-Yei-Ssb Reductase Inhibitor) Review of Systems Review of Systems: CONSTITUTIONAL: Denies fever, chills, or sweats. EYES: Denies visual changes, redness, or discharge. ENT: Denies rhinorrhea, congestion, sore throat, or otalgia. CARDIOVASCULAR: Denies chest pain, palpitations, or edema. RESPIRATORY: Denies cough or dyspnea. GASTROINTESTINAL: Denies abdominal pain, nausea, vomiting, or diarrhea. GENITOURINARY: Denies dysuria or hematuria. SKIN: Denies rash or itching. Positive cat bite to right arm MUSCULOSKELETAL: Denies back pain, joint pain, or myalgia. NEUROLOGIC: Denies headache, numbness, or weakness. PSYCHIATRIC: Denies anxiety or depression. [facility] Past Medical History Medical History Bursitis of left hip Chronic back pain Hypothyroidism HTN (hypertension) DVT (deep venous thrombosis) post hip surgery Social History Social History Smoking status: Never smoker Substance use: never Gender identity (if verbalized by the patient): Female Comments At the time of my signature I agree with nursing past medical history, surgical, social, and family history. There is no relevant family history pertinent to the presenting complaint. Exam Narrative: GENERAL: Well-appearing, well-nourished, and in no acute distress. HEAD: Normocephalic, atraumatic. EYES: PERRLA and EOMI. ENT: Nares clear, no rhinorrhea or epistaxis. Mucous membranes moist. NECK: Supple. No lymphadenopathy CHEST: Clear to auscultation. No respiratory distress. HEART: Regular rate and rhythm. No murmur heard. Normal peripheral pulses. ABDOMEN: Soft, nontender, nondistended, normal active bowel sounds. EXTREMITIES: Normal range of motion. No edema. SKIN: Warm, dry, no rash. patient has 2 puncture romo noted to the right forearm with the more superficial puncture are delio noted to the anterior side of the right arm with surrounding erythema and warmth. The erythema measuring approximately 8.5 cm x 8 cm. Patient complains of soreness to the distal portion of the forearm but has excellent range of motion and 2+ radial pulses. NEURO: No focal deficits. Alert and oriented x3. Course Course Level of Care: Express Care Visit Vital Signs Vital signs: Vital Signs Temperature 36.5 C 03/18/24 13:08 Pulse Rate 03/18/24 13:08 Respiratory Rate 03/18/24 13:08 Blood Pressure 151/59 H 03/18/24 13:08 Pulse Oximetry 03/18/24 13:08 Oxygen Delivery Room Air 03/18/24 13:08 Temperature 36.5 C 03/18/24 13:08 Pulse Rate 03/18/24 13:08 Respiratory Rate 18 03/18/24 13:08 Blood Pressure 151/59 H 03/18/24 13:08 Pulse Oximetry 03/18/24 13:08 Oxygen Delivery Room Air 03/18/24 13:08 Vital signs reviewed. The patient has been informed that they may have pre-hypertension or Hypertension based on a BP reading in the department. I recommend that the patient call the primary care provider listed on their discharge instructions or a physician of their choice this week to arrange follow up for further evaluation of possible pre-hypertension or Hypertension Medical Decision Making MDM Narrative Medical decision making narrative: Plan of care for patient is to update her tetanus shot today, clean the wound and dress it with antibiotic ointment, nonadhesive bandage and Coban. We will discharge her home with oral antibiotics. Discussed with patient that if the redness starts to go outside of the marked area, she develops fevers, or any other concerning symptoms that she would need to go to the ER for further evaluation otherwise follow up with her doctor on Wednesday as needed. Patient verbalized understanding denies any other questions or concerns at this time. Differential Diagnosis Differential Diagnosis: Differential diagnosis: Abscess, cellulitis, hidradenitis, laceration, puncture wound. Vital Signs Vital Signs: Vital Signs Temperature 36.5 C 03/18/24 13:08 Pulse Rate 03/18/24 13:08 Respiratory Rate 03/18/24 13:08 Blood Pressure 151/59 H 03/18/24 13:08 Pulse Oximetry 03/18/24 13:08 Oxygen Delivery Room Air 03/18/24 13:08 Temperature 36.5 C 03/18/24 13:08 Pulse Rate 03/18/24 13:08 Respiratory Rate 03/18/24 13:08 Blood Pressure 151/59 H 03/18/24 13:08 Pulse Oximetry 100 03/18/24 13:08 Oxygen Delivery Room Air 03/18/24 13:08 Critical Care Time Critical Care Time Critical Care Time: No Discharge Plan Discharge Clinical Impression: Cat bite, Cellulitis of arm, right Patient Disposition: Home, Self-Care Condition: Stable Instructions: Antibiotic Form, Cellulitis (ED) Additional Instructions: Take the prescribed antibiotic medicine you are given as directed until it is gone. Take it even if you feel better. It treats the infection and stops it from returning. Not taking all the medicine can make future infections hard to treat. Keep the infected area clean. When possible, raise the infected area above the level of your heart. This helps keep swelling down. May take Tylenol ibuprofen as needed for pain Take your temperature once a day for a week to monitor for fevers. If you do spike a fever please call your doctor right away. Wash your hands often to prevent spreading the infection. In the future, wash your hands before and after you touch cuts, scratches, or bandages. This will help prevent infection. Please call your doctor today and be scheduled for follow-up appointments in regards to being evaluated for vascular disease. When to call your healthcare provider Call your healthcare provider immediately if you have any of the following: Difficulty or pain when moving the joints above or below the infected area Discharge or pus draining from the area Fever of 100.4?F (38?C) or higher, or as directed by your healthcare provider Pain that gets worse in or around the infected Redness that gets worse in or around the infected area, particularly if the area of redness expands to a wider area Shaking chills Swelling of the infected area Vomiting Patient Language: Sinhala Prescriptions: New cephalexin 500 mg capsule 500 mg PO Q12H 10 Days Qty: 20 0RF mupirocin [Centany] 2 % ointment 1 applic topical BID Qty: 22 0RF No Action levothyroxine [Synthroid] 25 mcg Tablet 25 mcg PO DAILY ferrous sulfate [Iron (ferrous sulfate)] 325 mg (65 mg iron) Tablet 325 mg PO DAILY lisinopril 10 mg Tablet 10 mg PO DAILY Adult Probiotic 3 billion cell Capsule 3,000 mmu cells PO DAILY coQ10 (ubiquinol) 100 mg Capsule 100 mg PO DAILY Eliquis 5 mg Tablet 5 mg PO BID garlic 1,000 mg Capsule 1,000 mg PO DAILY ascorbic acid (vitamin C) [Vitamin C] 250 mg Tablet 250 mg PO DAILY magnesium 200 mg Tablet 165 mg cholecalciferol (vitamin D3) 25 mcg (1,000 unit) Tablet 25 mcg PO DAILY biotin 10,000 mcg Tablet,Disintegrating 10,000 mcg PO DAILY diazepam 5 mg tablet 5 mg PO BID PRN (Reason: muscle spasm) Qty: 10 0RF Follow-up/Referrals: Yonatan,Naima Grajeda DO [Primary Care Provider] - Time of Disposition: 13:29
[2024-03-18 13:08] VITALS: BP 151/59; PULSE 71; RESP 18; TEMP 36.5; O2SAT 100
[2024-03-18] MEDS: TETANUS,DIPHTHERIA,AC PERTUSSIS ADULT (0.5 ML) BOOSTRIX IM (13:33)
== END 2024-03-18 13:38 | disposition home or self-care (01) ==
PROVIDERS: Emergency Provider Nurse Practitioner Family; PCP Family Medicine Sports Medicine
DX: S51.831A Puncture wound without foreign body of right forearm, initial encounter (principal); L03.113 Cellulitis of right upper limb; W55.01XA Bitten by cat, initial encounter; I10 Essential (primary) hypertension; E03.9 Hypothyroidism, unspecified; Z86.718 Personal history of other venous thrombosis and embolism; Z79.01 Long term (current) use of anticoagulants
CPT/HCPCS: 90471; 90715; 99213; G0463